=== PATIENT | female | born 1970 | race Caucasian/White ===

== ENCOUNTER 2018-12-03 02:26 | Inpatient (IN) ==
--- NOTE | 2018-12-03 04:37 | PROVIDER DOCUMENTATION ---
HPI-Respiratory General - General Chief Complaint: Shortness of Breath Stated Complaint: RETURN Time Seen by Provider: 12/03/18 04:13 Allergies/Adverse Reactions: Patient Allergies Allergy/AdvReac Type Severity Reaction Status Date / Time NSAIDS (Non-Steroidal Allergy Severe dyspnea Verified 12/03/18 03:10 Anti-Inflamma aspirin Allergy Mild RASH Verified 12/03/18 03:10 tramadol HCl * [From Ultram] Allergy RASH Verified 12/03/18 03:10 Home Medications: Home Medication List Medication Instructions Recorded Confirmed Last Taken Type Montelukast [Singulair] 10 mg PO DAILY 07/12/14 12/01/17 11/21/17 History Citalopram Hydrobromide 10 mg PO QHS 11/21/17 12/01/17 11/20/17 History [Citalopram HBr] Methocarbamol [Robaxin] 500 mg PO BID #14 tab 11/21/17 12/01/17 Unknown Rx Albuterol [Albuterol Neb] 2.5 mg INH RTQ6H 12/01/17 12/01/17 Unknown History Ipratropium [place] Neb [Atrovent 0.5 mg INH TID@0900,1500,2100 12/01/17 Unknown History Neb] Azithromycin [Zithromax] 500 mg PO HS #3 tab 12/03/17 Unknown Rx Budesonide/Formoterol Inhaler 1 puff INH RTBID inhaler 12/03/17 Unknown Rx [Symbicort 160/4.5 Microgm Inhaler] CefDINIR [Omnicef] 300 mg PO BID #10 cap 12/03/17 Unknown Rx Hydrocodone/APAP 5 mg/325 mg 1 ea PO Q4H PRN PRN #15 tab 12/03/17 Unknown Rx [[place]-5] Methylprednisolone [Medrol Dosepak] 4 mg PO DIRECTED #1 pkg 12/03/17 Unknown Rx Nebulizer [Aeroneb Go Nebulizer] 1 ea MC 3-4XDAY PRN PRN #1 ea 12/03/17 Unknown Rx Albuterol Sulfate [Proair Hfa] 2 puff IH Q4-6H PRN PRN #1 03/06/18 Unknown Rx hfa.aer.ad Levofloxacin [Levaquin] 500 mg PO DAILY #7 tab 03/06/18 Unknown Rx Prednisone 10 mg PO DAILY #33 tab 03/06/18 Unknown Rx Azithromycin 250 mg PO DAILY #7 tab 03/29/18 Unknown Rx Prednisone 10 mg PO DIRECTED 18 Days tab 03/29/18 Unknown Rx Albuterol Sulfate Inhaler 2 puff INH Q6H PRN PRN #1 inhaler 06/25/18 Unknown Rx [Ventolin Hfa] Azithromycin [Zithromax Z-Britton] 250 mg PO DIRECTED #1 pkg 06/25/18 Unknown Rx Prednisone 20 mg PO DIRECTED #18 tab 06/25/18 Unknown Rx Albuterol Sulfate [Proventil Hfa] 2 puff IH Q4HR PRN #1 hfa.aer.ad 07/22/18 Unknown Rx Albuterol [Albuterol Neb] 2.5 mg INH Q4H PRN PRN #30 neb 07/22/18 Unknown Rx Azithromycin [Zithromax Z-Britton] 250 mg PO DIRECTED #1 pkg 07/22/18 Unknown Rx Prednisone 0 mg PO DAILY #25 tab 07/22/18 Unknown Rx Promethazine/Dextromethorphan 5 ml PO BID PRN #90 ml 07/22/18 Unknown Rx [Promethazine-Dm Syrup] Fluticasone Propionate [Flonase 9.9 ml NS DAILY #1 spray.susp 08/13/18 Unknown Rx Allergy Relief] Oxymetazoline Nasal [place] [Afrin 15 ml .SEE ORDER BID #1 bottle 08/13/18 Unknown Rx Nasal [place]] Prednisone 20 mg PO BID #10 tablet 08/13/18 Unknown Rx Amoxicillin 875 mg PO BID #20 tab 09/12/18 Unknown Rx Prednisone 10 mg PO DAILY #14 tab.ds.pk 09/12/18 Unknown Rx - History of Present Illness-Resp Nature of Presenting Problem: patient was here with COPD, hypoxia and i wanted her to be admitted and arrange home oxygen at discharge, patient signed AMA and now came back for the admisstion, patient was second hand smoker. patient had cough, wheezes and was treated with steroids and breathing treatment Quality of Pain: reports: tightness Severity in ED: reports: moderate Onset/Duration: reports: 1 week ago Timing: reports: still present Context: reports: recent URI. denies: recent foreign travel, insect bite ( possible tick), recent chemotherapy Exposure: reports: smoke exposure Cough Quality/Degree: reports: productive cough Episode Frequency: chronic episodes Current Respiratory Medication Therapy: Initiated A/A nebulizer, Initiated steroid inhaler Modifying Factors: improves with: exertion Associated Symptoms: denies: dizziness, headache Similar Symptoms Previously?: Yes Recently seen or treated by another doctor?: Yes (here in the ER ) Review of Systems - Adult - REVIEW OF SYSTEMS - ADULT Constitutional: denies: fever Eyes: reports: no symptoms reported Ears, Nose, Mouth & Throat: reports: no symptoms reported Cardiovascular: reports: no symptoms reported Respiratory: reports: chronic cough, cough, dyspnea on exertion, excessive sputum production, shortness of breath, wheezing Gastrointestinal: reports: no symptoms reported Genitourinary: reports: no symptoms reported Musculoskeletal: reports: no symptoms reported Integumentary: reports: no symptoms reported Neurological: reports: no symptoms reported Psychiatric: reports: no symptoms reported Endocrine: reports: no symptoms reported Hematologic/Lymphatic: reports: no symptoms reported Allergic/Immunologic: reports: no symptoms reported Past History - Adult - PAST MEDICAL HISTORY-ADULT Review of Records: reports: Nursing Assessment Review Major Childhood Illnesses: reports: denies history Cardiovascular: reports: denies history Respiratory: reports: asthma, COPD, lung disease, pneumonia Gastrointestinal: reports: GERD Obstetrical/Gynecological: reports: denies history Genitourinary: reports: denies history Musculoskeletal: reports: denies history Neurological: reports: Seizures/Epilepsy Psychiatric: reports: denies history Endocrine/Immune: reports: Diabetes Other Conditions: reports: denies history - PRIOR SURGERIES/PROCEDURES Surgical/Procedure History: reports: appendectomy, hysterectomy, tonsillectomy - IMMUNIZATION STATUS Childhood Immunizations: See Nurse Assessment Flu Vaccine: See Nurse Assessment - FAMILY HISTORY Family History: reviewed, not pertinent Physical Exam-General - PHYSICAL EXAM-ADULT Initial Vital Signs Reviewed: Yes - CONSTITUTIONAL General Appearance: alert - EYES Eyes: PERRL/EOMI - HEAD, EARS, NOSE, MOUTH & THROAT HENMT: normocephalic/atraumatic, moist mucous membranes - NECK Neck: non-tender, supple - RESPIRATORY Respiratory: wheezing, prolonged expiration - CARDIOVASCULAR Cardiovascular: normal peripheral pulses, regular rate, rhythm, no edema, no gallop, no JVD, no murmur - GASTROINTESTINAL (ABDOMEN) Abdominal Exam: non tender, soft, no organomegaly - LYMPHATIC Lymphatic: no adenopathy. negative: axilla node tender, inguinal node tender - MUSCULOSKELETAL Back Exam: no CVA tenderness, no vertebral tenderness Extremity: normal range of motion, non-tender - SKIN Integumentary: normal color, warm/dry - NEUROLOGIC Neurologic: deli cook II-XII nml as tested, grossly normal, no motor/sensory deficits Progress - PLAN OF CARE/RESULTS Progress/Plan/Lab Results: Vital Signs - 8 hr 12/03/18 03:05 Temperature 99.4 F Pulse Rate 118 H Respiratory Rate 22 Blood Pressure 114/70 O2 Sat by Pulse Oximetry 78 L - XRAY 1 XRAY Study: Chest Impression: See EMR Report (hyperinflated, scar tissue both upper lobes) - CONSULTS/PCP/HOSPITALIST Notification #1 *Consult/PCP/Hospitalist*: Dr Gil Time Discussed: 04:20 Consult Disposition: other (OK to admit) Departure - Departure Date of Disposition Decision: 12/03/18 Time of Disposition Decision: 04:39 DIAGNOSIS: COPD exacerbation, Hypoxia Disposition: ADMITTED INPATIENT 09 Certified Medical Emergency: Emergent Condition: Fair Referrals and Follow-Ups: Mert Morocho MD [Primary Care Provider] - - Critical Care Note This patient required my direct & personal management of CC.: No Attestation - Physician/ DEMARCO Attestation Patient care was provided by Advanced Practice Provider:: No The physician spent face to face time with patient:: Yes Advanced Practice Provider documentation review:: Supervising physician onsite and consulted in the evaluation and care of this patient. The physician did have a face to face encounter with the patient.
[2018-12-03] MEDS ORDERED: ROCEPHIN IV ONE (04:43)
[2018-12-03] MEDS ORDERED: DUONEB (A & A) INH SCH (07:30)
[2018-12-03] MEDS ORDERED: TYLENOL PO PRN ×2 (10:43→18:31)
[2018-12-03] MEDS: NICODERM PATCH TD SCH (11:10)
[2018-12-03 11:12] LABS: BASO# 0.01 X1000 (0.0-0.2); BASO% 0.1 % (0.0-0.8); HEMATOCRIT 39.3 % (37.0-47.0); HEMOGLOBIN 12.8 g/dL (12.0-16.0); IMM GRAN# 0.01 X1000 (0.0-0.04); IMM GRAN% 0.1 % (0.0-0.5); LYMPH# 0.74 X1000 (1.2-3.4); LYMPH% 9.3 % (20.5-51.1); MCH 29.8 PG (27-31); MCHC 32.6 g/dL (33-37); MCV 91.6 FL (81-99); MONO# 0.15 X1000 (0.11-0.59); MONO% 1.9 % (1.7-9.3); MPV 9.6 FL (7.4-10.4); NEUT# 7.08 X1000 (1.4-6.5); NEUT% 88.6 % (42.2-75.2); PLT 298 X1000 (130-400); RBC 4.29 XMIL (4.2-5.4); RDW 14.2 % (11.5-14.5); WBC 7.99 X1000 (4.8-10.8)
[2018-12-03 11:30] LABS: AGAP 11; ALBUMIN 3.6 g/dL (3.5-5.0); ALKALINE PHOSPHATASE 68 U/L (32-104); BUN 9 mg/dL (8-22); CALCIUM 8.9 mg/dL (8.8-10.2); CHLORIDE 103 mmol/L (98-107); COSMO 283; CREATININE 0.6 mg/dL (0.5-0.9); ESTIMATED GFR > 60; GLUCOSE 150 mg/dL (70-104); GOT 14 U/L (10-30); GPT 8 U/L (10-36); MAGNESIUM 2.3 mg/dL (1.5-2.7); POTASSIUM 5.2 mmol/L (3.5-5.1); SODIUM 141 mmol/L (136-145); TCO2 28 mmol/L (25-35); TOTAL PROTEIN 6.6 g/dL (6.3-8.3)
[2018-12-03 12:26] LABS: LYMPHS 6 % (21-51); MONO 2 % (1-9); SEGS 94 % (42-75)
[2018-12-03] MEDS: DUONEB (A & A) INH PRN ×2 (13:55→17:58)
[2018-12-03] MEDS: NORCO-5 PO PRN ×2 (15:51→20:38)
[2018-12-03] MEDS: ZANTAC PO SCH (18:30)
[2018-12-03] MEDS ORDERED: DUONEB (A & A) INH PRN (18:31)
[2018-12-03] MEDS: DUONEB (A & A) INH SCH ×2 (19:41→23:36)
[2018-12-03] MEDS: NS 1,000 ML IV SCH (19:46)
[2018-12-03] MEDS: SOLU-MEDROL IV SCH (19:47)
[2018-12-03] MEDS: ZITHROMAX PO SCH (19:47)
--- NOTE | 2018-12-03 19:49 | HISTORY AND PHYSICAL ---
CHIEF COMPLAINT: Shortness of breath. HISTORY OF PRESENT ILLNESS: This is a 48-year-old female with a history of asthma, COPD, gastroesophageal reflux disease and seizures. She presents to the emergency room complaining of dyspnea, a nonproductive cough that has been present for a week despite use of her home medications. She denied any fevers or chills. She first presented to the emergency room at 9 o'clock on the , stating that she had some chest pain and pressure through the day, along with above-named symptoms. She had an O2 sat of 85% on room air at that time. She was evaluated and diagnosed with COPD exacerbation. She refused admission and actually left against medical advice. She re- presented back to the emergency room at 4:30 in the morning and at this time she had a room air saturation of 78%, with a temperature of 99.4 degrees. She was given supplemental oxygen and sats have increased 93-95%, and she is being admitted for further evaluation and treatment. PAST MEDICAL HISTORY: COPD, gastroesophageal reflux disease, seizure disorder. PAST SURGICAL HISTORY: Tonsillectomy, adenoidectomy. SOCIAL HISTORY: She denies alcohol, tobacco or illicit drug use. ALLERGIES: NSAIDs which cause dyspnea, aspirin which causes a rash and tramadol which causes a rash. HOME MEDICATIONS: Zantac, Singulair, Atrovent nebulizer, citalopram, Symbicort 160/4.5, albuterol nebs. REVIEW OF SYSTEMS: Discussed with patient with pertinent positives stated in the HPI. She denied any syncope, dizziness, any palpitations, any night sweats, any nausea, vomiting , diarrhea, constipation, black or bloody vomitus or stools, any hematuria, dysuria, frequency, urgency. PHYSICAL EXAMINATION: GENERAL: This is a 48-year-old female who is sitting up in the bed in no distress. VITAL SIGNS: Blood pressure is 112/72, with a heart rate of 82, respirations are 18, temperature is 97.8 oral, with O2 sats 95-97% on 2 L nasal cannula. EYES: Pupils equal, round, react to light. EOMs are intact. Sclerae anicteric. HEENT: Head is normocephalic, atraumatic. Mucous membranes are moist. NECK: Supple, with trachea midline. CARDIOVASCULAR: Regular rate and rhythm. S1 and S2 are appreciated. Peripheral pulses are palpable x 4 extremities. PULMONARY: Breath sounds are diminished with prolonged expiration. She does have scattered wheezes throughout. GASTROINTESTINAL: Abdomen is soft, nontender, nondistended. With bowel sounds in all 4 quadrants. NEUROLOGIC: She is alert oriented x 3. SKIN: Warm and dry. LABS: WBC is 7.9, with hemoglobin 12.8, hematocrit 39.3, platelets of 298,000. Sodium is 141, potassium 5.2, BUN 9, creatinine 0.6, glucose of 150. ABGs: pH is 7.4, with pCO2 of 45, PO2 of 34 and bicarb of 26.4. This is on room air. Blood cultures are pending. ASSESSMENT AND PLAN: 1. Acute hypoxic respiratory failure. 2. COPD acute exacerbation. 3. Gastroesophageal reflux disease. 4. Seizure disorder. 5. Hyperkalemia. 6. Hyperglycemia. PLAN: The patient has been admitted to the Medical/Surgical floor and placed on telemetry, which will continue. We will give supplemental oxygen. We will consult Lead Principal Technical Architect for home O2. We will identify her home medications and continue these as appropriate. We will start steroids to taper, with DuoNebs q.4 hours with q.2 hours p.r.n. She was given Rocephin in the emergency room which we will continue. We will add Zithromax and any further antibiotics will be culture driven. The patient did have an elevated blood glucose. In previous records, it did state that she was diabetic although the patient states that she is not. We will check a hemoglobin A1c, and then treat as is appropriate. For DVT prophylaxis will use Lovenox and GI prophylaxis Prilosec. Further treatments pending hospital course. Dictated by TYLER Griffin for iVnce Gil MD This chart was documented by, TYLER Griffin and accurately reflects the services performed, treatment plan and medical decisions as attested by the providers signature Vince Gil MD. cc: TYLER Griffin MD [facility]
[2018-12-03] MEDS ORDERED: SINGULAIR PO SCH (20:45)
[2018-12-03] MEDS: CELEXA PO SCH (22:04)
[2018-12-03] MEDS: SINGULAIR PO SCH (22:05)
[2018-12-03] MEDS: AMBIEN PO PRN (22:06)
--- NOTE | 2018-12-04 01:43 | HISTORY AND PHYSICAL ---
ADDENDUM: Patient seen examined by myself. Full note dictated and discussed with nurse practitioner. Patient presented to the hospital with increased cough, congestion, shortness of breath, increased work of breathing. Subsequently diagnosed with a COPD exacerbation. We will admit to the hospital, IV fluids, antibiotics, breathing treatments and we will follow. Please see full note. cc: Vince Gil MD
[2018-12-04] MEDS: DUONEB (A & A) INH SCH ×6 (03:23→22:29)
[2018-12-04] MEDS: ROCEPHIN 1 GM in NS 50 ML IV SCH (05:00)
[2018-12-04] MEDS: SOLU-MEDROL IV SCH ×3 (06:34→20:37)
[2018-12-04 06:55] LABS: EOS# 0.17 X1000 (0.0-0.7); EOS% 1.4 % (0.0-10.0); HEMATOCRIT 39.9 % (37.0-47.0); HEMOGLOBIN 12.4 g/dL (12.0-16.0); IMM GRAN# 0.04 X1000 (0.0-0.04); IMM GRAN% 0.3 % (0.0-0.5); LYMPH# 0.66 X1000 (1.2-3.4); LYMPH% 5.3 % (20.5-51.1); MCH 27.9 PG (27-31); MCHC 31.1 g/dL (33-37); MCV 89.9 FL (81-99); MONO% 3.2 % (1.7-9.3); NEUT# 11.16 X1000 (1.4-6.5); NEUT% 89.8 % (42.2-75.2); PLT 123 X1000 (130-400); RBC 4.44 XMIL (4.2-5.4); WBC 12.43 X1000 (4.8-10.8)
[2018-12-04 06:57] LABS: HEMOGLOBIN A1C 5.5 % (4.8-6.0)
[2018-12-04 07:03] LABS: BANDS 1 % (0-1); EOS 1 % (1-10); LYMPHS 9 % (21-51); MONO 3 % (1-9); SEGS 86 % (42-75)
[2018-12-04 07:04] LABS: AGAP 12; ALBUMIN 3.6 g/dL (3.5-5.0); ALKALINE PHOSPHATASE 62 U/L (32-104); BUN 14 mg/dL (8-22); CALCIUM 8.6 mg/dL (8.8-10.2); CHLORIDE 103 mmol/L (98-107); COSMO 281; CREATININE 0.6 mg/dL (0.5-0.9); ESTIMATED GFR > 60; GLUCOSE 151 mg/dL (70-104); GOT 11 U/L (10-30); GPT 8 U/L (10-36); POTASSIUM 4.7 mmol/L (3.5-5.1); SODIUM 139 mmol/L (136-145); TCO2 24 mmol/L (25-35); TOTAL PROTEIN 6.7 g/dL (6.3-8.3)
[2018-12-04] MEDS: PRILOSEC PO SCH (07:19)
[2018-12-04] MEDS ORDERED: SINGULAIR PO SCH (09:00)
--- NOTE | 2018-12-04 09:25 | Diag Imaging Result Doc PS360 ---
EXAM: CT THORAX W/CONTRAST HISTORY: Abnormal CXR TECHNIQUE: Images were obtained from the lung apices through bases following IV contrast as per standard protocol. COMPARISON: Portable chest radiograph 12/03/2018. FINDINGS: There are shotty mediastinal lymph nodes. None meet criteria for pathologic enlargement. No hilar adenopathy. No aortic aneurysm or dissection. There is biapical pleural thickening. There are groundglass infiltrates involving both upper lobes right greater than left most marked involving the right upper lobe but also perihilar left upper lobe. There is a small irregular opacity and associated groundglass infiltrate within the right lower lobe as well. There are innumerable,, bilateral, less than 1 cm, pulmonary nodules left lung greater than right. No effusion. No pneumothorax. There are tree-in-bud opacities superolateral medial left lower lobe. IMPRESSION: 1.Bilateral groundglass infiltrates associated with multiple, small bilateral pulmonary nodules and some tree-in-bud opacities. 2.Considerations would include primarily bronchopneumonia, pulmonary hemorrhage, and infectious or inflammatory bronchiolitis. Recommend follow-up to document complete clearing and exclude adenocarcinoma. This exam was performed using automated exposure control, adjustment of mA or kV according to patient size, and/or use of iterative reconstruction technique. Electronically signed by Kelley Jeff 12/04/2018 9:23 AM
[2018-12-04] MEDS: NICODERM PATCH TD SCH (11:32)
[2018-12-04] MEDS: ZANTAC PO SCH (11:32)
[2018-12-04] MEDS: LOVENOX SUBQ SCH (11:32)
[2018-12-04] MEDS: NORCO-5 PO PRN ×3 (11:38→22:52)
[2018-12-04] MEDS ORDERED: VENTOLIN HFA INH PRN (12:27)
[2018-12-04] MEDS: NS 1,000 ML IV SCH (15:29)
[2018-12-04] MEDS: ZITHROMAX PO SCH (18:52)
[2018-12-04] MEDS: SYMBICORT 160/4.5 MICROGM INHALER INH SCH (19:22)
[2018-12-04] MEDS: CELEXA PO SCH (20:37)
[2018-12-04] MEDS: SINGULAIR PO SCH (20:37)
[2018-12-04] MEDS: AMBIEN PO PRN (22:52)
[2018-12-04] MEDS ORDERED: FLU VACCINE IM ONE (23:57)
[2018-12-05] MEDS: DUONEB (A & A) INH SCH ×4 (03:21→15:50)
[2018-12-05] MEDS: ROCEPHIN 1 GM in NS 50 ML IV SCH (04:40)
[2018-12-05] MEDS: SOLU-MEDROL IV SCH (04:40)
[2018-12-05 05:27] VITALS: BP 137/83
[2018-12-05] MEDS: PRILOSEC PO SCH (06:44)
[2018-12-05] MEDS: SYMBICORT 160/4.5 MICROGM INHALER INH SCH (07:43)
[2018-12-05] MEDS ORDERED: PNEUMOVAX 23 IM ONE (09:00)
[2018-12-05] MEDS: ZANTAC PO SCH (10:05)
[2018-12-05] MEDS: NICODERM PATCH TD SCH (10:05)
[2018-12-05] MEDS: LOVENOX SUBQ SCH (10:05)
[2018-12-05] MEDS: NORCO-5 PO PRN (11:56)
--- NOTE | 2018-12-05 19:14 | PROGRESS NOTE ---
DATE: 12/04/2018 SUBJECTIVE: The patient notes overall she is starting to feel better. Still having some cough and congestion. She states her breathing is much improved. She has several questions today. OBJECTIVE: Temperature 97.5, pulse 76, respiratory rate 20, BP 124/76. General: The patient is awake, alert. Currently she is in minimal respiratory distress. HEENT: Normocephalic. Neck supple. Cardiovascular: Regular rate. No murmurs. Chest clear, nonlabored. Abdomen is soft. Extremities: Moves all extremities. Neurologic: No focal changes. Skin warm and dry. No rashes. ASSESSMENT: 1. Chronic obstructive pulmonary disease with exacerbation. 2. Acute hypoxic respiratory failure. 3. Chronic reflux. 4. Seizure disorder. PLAN: We will continue the patient in the hospital. We will wean down her steroids. Hopefully if she continues to improve she will be discharged home tomorrow. cc: Vince Gil MD
--- NOTE | 2018-12-06 01:20 | DISCHARGE SUMMARY ---
ADMISSION DATE: 12/03/2018 DISCHARGE DATE: 12/05/2018 DISCHARGE DIAGNOSES: 1. Acute hypoxic respiratory failure. 2. Chronic obstructive pulmonary disease with acute exacerbation. 3. Chronic reflux. 4. History of seizure disorder. 5. Hyperkalemia, resolved. 6. Hyperglycemia improved. 7. Chronic reflux. 8. Chronic tobacco exposure. CONSULTATIONS: None. PROCEDURES: None. BRIEF HOSPITAL COURSE: The patient is a 48-year-old female who presented to the emergency department as noted in the HPI. Treated in usual fashion, placed in the hospital, IV Solu-Medrol, breathing treatments, oxygen and required sliding scale insulin due to her hyperglycemia. Thankfully, she continued to improve. On discharge, she is awake, alert. She is able to talk in complete sentences, ambulate in the [place] with no difficulty. DISPOSITION: Patient will be discharged home. We will discharge her with steroids, breathing treatments, antibiotics. She does not require oxygen currently. We will continue to follow with her primary care. TIME SPENT: Greater than 30 minutes was spent in total care. Discussed with patient she needs to avoid cigarette exposure. cc: Vince Gil MD
== END 2018-12-05 12:43 | disposition home or self-care (01) | DRG 190 ==
LOC: P.ED 02:26 → P.MEDSURG 02:26 → OBSVTOIN 06:33 → SUATTDRO 06:33
PROVIDERS: ATTEND Family Medicine
CPT/HCPCS: 71260; 80053; 82948; 83036; 83735; 85025; 87040; 90732; 94640; 94761; 96374; 99285; A9270; J0696; J1650; J2920; J2930; J7030; Q9967; XXXXX